=== PATIENT | female | born 1965 | race Caucasian/White ===

== ENCOUNTER → 2018-05-15 20:26 | Outpatient (CLI) | payer BC, SELFPAY | PROVIDERS: Family Provider Specialist; PCP Specialist; Visit Provider Physician Assistant | DX: L02.91 Cutaneous abscess, unspecified (principal) | CPT/HCPCS: 87070; 87075; 87077; 87147; 87186; 87205 ==

== ENCOUNTER → 2018-11-29 07:54 | Outpatient (CLI) | payer BC, SELFPAY ==
[2018-11-29 09:06] LABS: Add Manual Diff / Slide Review NO; Basophils Absolute Auto 0 /uL (0-100); Basophils Percent Auto 0.6 % (0-2); Eosinophils Absolute Auto 100 /uL (0-450); Hematocrit 41.7 % (36-46); Hemoglobin 14.2 g/dL (12.0-16.0); Lymphocytes Absolute Auto 1900 /uL (1100-4500); Mean Corpuscular Hemoglobin 32.4 PG (26-34); Mean Corpuscular Volume 95.2 fL (80-100); Monocytes Absolute Auto 500 /uL (0-900); Monocytes Percent Auto 8.9 % (3-14); Neutrophils Absolute Auto 3200 /uL (1500-7000); Neutrophils Percent Auto 55.5 % (50-75); Platelet Count 271 X10^3/uL (150-400); Red Blood Cell Count 4.38 X10^6/uL (4.0-5.2); Red Cell Distribution Width 13.6 % (11.6-14.8); White Blood Cell Count 5.8 X10^3/uL (4.5-11.0)
[2018-11-29 09:41] LABS: Carbon Dioxide 31 mmol/L (22-32); Chloride 103 mmol/L (98-107); HEMOLYSIS < 15 (0-50); Potassium 4.5 mmol/L (3.4-5.1); Sodium 140 mmol/L (137-145)
== END ==
PROVIDERS: Family Provider Specialist; PCP Specialist; Visit Provider Orthopaedic Surgery
DX: M17.10 Unilateral primary osteoarthritis, unspecified knee (principal); Z01.818 Encounter for other preprocedural examination; Z01.812 Encounter for preprocedural laboratory examination
CPT/HCPCS: 36415; 80051; 85025; 93005

== ENCOUNTER → 2019-02-01 13:54 | Outpatient (CLI) | payer BC, SELFPAY ==
[2019-02-01 14:43] LABS: Add Manual Diff / Slide Review NO; Basophils Absolute Auto 200 /uL (0-100); Basophils Percent Auto 1.9 % (0-2); Eosinophils Absolute Auto 200 /uL (0-450); Eosinophils Percent Auto 2.3 % (2-4); Hematocrit 41.5 % (36-46); Hemoglobin 14.3 g/dL (12.0-16.0); Lymphocytes Absolute Auto 2800 /uL (1100-4500); Lymphocytes Percent Auto 32.2 % (25-40); Mean Corpuscular HGB Conc 34.5 % (30-36); Mean Corpuscular Volume 92.9 fL (80-100); Monocytes Absolute Auto 500 /uL (0-900); Monocytes Percent Auto 6.2 % (3-14); Neutrophils Absolute Auto 5000 /uL (1500-7000); Neutrophils Percent Auto 57.4 % (50-75); Platelet Count 231 X10^3/uL (150-400); Red Blood Cell Count 4.46 X10^6/uL (4.0-5.2); Red Cell Distribution Width 13.3 % (11.6-14.8); White Blood Cell Count 8.7 X10^3/uL (4.5-11.0)
[2019-02-01 14:48] LABS: Carbon Dioxide 28 mmol/L (22-32); Chloride 103 mmol/L (98-107); HEMOLYSIS 22 (0-50); Potassium 4.2 mmol/L (3.4-5.1); Sodium 140 mmol/L (137-145)
== END ==
PROVIDERS: Family Provider Specialist; PCP Specialist; Visit Provider Orthopaedic Surgery
DX: Z01.812 Encounter for preprocedural laboratory examination (principal)
CPT/HCPCS: 36415; 80051; 85025

== ENCOUNTER 2019-02-09 11:04 | Day surgery (SDC) | payer BC, SELFPAY ==
[2019-01-27 07:31] VITALS: BMI 42.0
[2019-02-09] VITALS (17 sets, daily range): BP systolic 88–145; BP diastolic 49–94; PULSE 52–72; RESP 11–16; TEMP 35.9–36.7; O2SAT 93–99; BMI 42.0
--- NOTE | 2019-02-09 11:15 | DI.RAD.S_ITS ---
PROCEDURE: XR KNEE LT 1TO2V INDICATIONS: post op TKA TECHNIQUE: 2 view(s) of the knee acquired. COMPARISON: [facility], , KNEE 3V LEFT, 11/23/2016, 18:59. [facility], , KNEE 3V RIGHT, 02/27/2016, 9:26. FINDINGS: Bones: Patient is status post knee joint arthroplasty. Hardware components are in expected positions. Visualized bony structures are intact. Soft tissues: Overlying postoperative changes are noted. IMPRESSION: Normal alignment after left total knee arthroplasty. Dictated by: Oj Purdy M.D. on 02/09/2019 at 15:28 Approved by: Oj Purdy M.D. on 02/09/2019 at 15:28
--- NOTE | 2019-02-09 11:15 | PM.PREOP ---
Pre-operative Note Interval Note History & Physical reviewed/Exam performed by Physician: Yes Changes to H&P: No
--- NOTE | 2019-02-09 11:16 | PM.OP.1 ---
Operative Date/Time/Diagnoses Date of procedure: 02/09/19 Time of procedure: 14:16 Pre-op diagnosis: Left knee osteoarthritis Post-op diagnosis: same Procedure & Clinicians Procedure: Left total knee arthroplasty Same procedure as scheduled: Yes Indications: The patient presents today for total knee arthroplasty after failure of conservative treatment. The nature of the procedure including the risks and benefits, alternatives, postoperative course and expected outcome were discussed and all questions answered. Consent was obtained. Operative site confirmed and marked. Surgeon: Ant Robert Cnc Milling Machinist: Rj James Anesthesia Type: General, Spinal, Peripheral nerve block and Local Operative Notes Findings: Severe osteoarthritis. Closure Type: primary Specimen(s): none sent Prosthetic devices, grafts, tissues, transplants, or devices: [employer] [facility] BCS: 4 femoral component, 3 tibial component, 9 mm BCS polyethylene tray and 29 x 7.5 mm round patella Applied: implant(s) Estimated Blood Loss (mL): 20 Blood products transfused: none Tourniquet time (min): 64 Procedure in detail: The patient was taken to the operative suite and placed under spinal and general anesthesia. The patient was also given an adductor nerve block. The patient was given prophylactic antibiotics prior to surgery. The patient was also given tranexamic acid, 1 g, just prior to surgery for postoperative hemostasis. The lateral knee was prepped and the joint injected with 20 mL of 1% Lidocaine with epinephrine. The knee was then prepped and draped in usual sterile fashion. The leg was exsanguinated with an Esmarch dressing and the tourniquet raised to 300 torr. A 15 cm anterior incision was made. Next a medial trivector arthrotomy was made. The extensor mechanism was marked to ensure accurate repair. Initial exposing dissection was carried out medially and laterally. The knee was then extended and the patellar thickness was measured and a cut made removing approximately 7-8 mm of bone. The patella was then sized and drilled. Some excess lateral bone was excised and the patellofemoral ligament released. The knee was then flexed and the intramedullary femoral guide rm placed. The distal femoral cut was made in 6 ? of valgus at the + 0 position. The femoral size was measured and the appropriate cutting block was then placed and the anterior, posterior and chamfer cuts made. The extra medullary tibial alignment rm was then placed along the anatomic axis of the tibia approximating the normal slope. The guide was set to remove approximately 9 mm from the less affected lateral side. The proximal tibial cut was then made with an oscillating saw. All meniscus and bony debris was then removed. Flexion extension gaps were checked. The knee was still tight in flexion extension. Another 2 mm of tibia was cut. No specific balancing was required other than routine removal of osteophytes. The soft tissues were then injected with a combination of 20 mL of half percent Marcaine with epinephrine and 20 mL of Exparel. The trial components were then placed. The knee went into full extension and flexion beyond 120?. There was excellent medial- lateral balance throughout motion. Patellar tracking was excellent. The trial components were removed and the knee was cleansed with Pulsavac irrigation and dried. The final components were cemented in with high viscosity vacuum mixed bone cement with antibiotics. The knee was held in extension and the patellar clamp until the cement had adequately cured. The knee was irrigated and inspected for any further debris. The knee was then irrigated with dilute Betadine solution. The extensor mechanism was closed with 5 interrupted #1 Vicryl sutures in 90 degrees of flexion. The joint was then injected with a combination of 1 g of tranexamic acid and 20 mL of quarter percent Marcaine with epinephrine. The subcutaneous tissue was closed with 2-0 Vicryl. The skin was closed with shaun and surgical adhesive. An Aquacell dressing and Artur wrap were then applied. The patient tolerated the procedure well and was returned to recovery room in good condition. Complications: none Condition: stable Disposition: PACU Plan for aftercare: [facility] protocol for total knee arthroplasty.
[2019-02-09] MEDS: LACTATED RINGERS 1,000 ML 42 ML IV ×2 (11:28→15:18)
[2019-02-09] MEDS: PREGABALIN 75 MG CAPSULE PO (11:50)
[2019-02-09] MEDS: ACETAMINOPHEN 325 MG TABLET 975 MG PO ×3 (11:50→21:35)
[2019-02-09] MEDS: CELECOXIB 200 MG CAPSULE PO (11:50)
[2019-02-09] MEDS: CEFAZOLIN 2 GM/100 ML FROZ.PIGGY IV ×2 (12:50→20:44)
--- NOTE | 2019-02-09 13:18 | SUR.OPER ---
Supine on padded OR bed. Pillow under head, arms secured on padded armboards <90 degree abduction. Safety belt across torso. Non-operative leg secured with tape over blanket over lower leg. Operative leg secured in DeMayo/Benitez positioner. Foam padded brace at thigh of operative leg.
[2019-02-09] MEDS: BUPIVACAINE 0.25% W/ EPI (PF) 20 ML, TRANEXAMIC ACID 1,000 MG, SODIUM CHLORIDE 0.9% 10 ML INJ (13:25)
[2019-02-09] MEDS: BUPIVACAINE 0.25% W/ EPI (PF) 40 ML, BUPIVACAINE LIPOSOME 266 MG, SODIUM CHLORIDE 0.9% ... INJ (13:26)
[2019-02-09] MEDS: LIDOCAINE 1% W/EPI INJ 20 ML INJ (13:27)
[2019-02-09] MEDS: HYDROMORPHONE 2 MG INJ 0.5 MG IV ×2 (15:00→15:06)
--- NOTE | 2019-02-09 15:25 | SUR.PHASEI ---
awake, drowsy, resp unlabored, pain controlled. c/o nausea, declines Rx; quease-ease given and sips of orange juice per pt request. She stated that OJ usually resolves her nausea. c/o numbness in the right leg. Legs equally strong when pressing on feet.
[2019-02-09] MEDS: ONDANSETRON 4 MG/2 ML INJ IV (15:38)
--- NOTE | 2019-02-09 16:01 | SUR.PHASEI ---
1550 Report called to floor, transported by pranay Le RN. Pt turned self to right side, states that her nausea is much better. LLE stable, improving strength/motion.
[2019-02-09] MEDS: GABAPENTIN 300 MG CAPSULE PO ×2 (17:30→20:44)
[2019-02-09] MEDS: LACTATED RINGERS 1,000 ML 125 ML IV (17:31)
[2019-02-09] MEDS: OXYCODONE IR 5 MG TABLET PO (17:31)
--- NOTE | 2019-02-09 19:29 | PC.NURSE ---
Admission Note: Pt received from PACU at ~1610. Pt reported pain 3/10 at that time, and was tolerating pain level. Pain briefly up to 4/10, pt given scheduled tyelnol, gabapentin and 5 mg po oxycodone with pain down to 2/10. Circulation and movement intact in LLE. Pt initially reported numbness in BLE, improving with time, reports no numbness at 1930, able to assist pt OOB to attempt to urinate at BS. Pt with brief and transient hypotension to 88/59, resolved when pt sat up to get OOB. Pt did not complain of dizziness or lightheadedness, HR remained in 60s. SBP up to 145 with sitting up in bed. Pt is now up on BSC attempting to urinate. Pt had been bladder scanned for volume of 432 ml. Call light within reach, L leg supported with foot-stool. PRADIP wrap loosened when pt sat up because it was cutting in to pt's thigh and was painful. Will continue to monitor, notify MD with changes.
[2019-02-09] MEDS: ASPIRIN EC 81 MG TABLET PO (20:43)
--- NOTE | 2019-02-09 23:36 | PC.NURSE ---
DANCER OR CHOREOGRAPHER note regarding the vitals put in at 1914: got a call from off going shift asking me to put in these vitals. They were on the monitor. Thanks!
[2019-02-10 00:20] VITALS: BP 111/67; PULSE 54; RESP 16; TEMP 38; O2SAT 100
[2019-02-10] MEDS: OXYCODONE IR 5 MG TABLET PO ×3 (00:26→09:58)
[2019-02-10 01:04] VITALS: BP 146/80; PULSE 92; RESP 18; TEMP 36.9; O2SAT 97
[2019-02-10] MEDS: LACTATED RINGERS 1,000 ML 125 ML IV (02:27)
[2019-02-10] MEDS: CEFAZOLIN 2 GM/100 ML FROZ.PIGGY IV (05:12)
[2019-02-10 05:21] VITALS: BP 121/75; PULSE 61; RESP 16; TEMP 36.5; O2SAT 98
[2019-02-10 07:00] VITALS: PULSE 60; RESP 16; O2SAT 97
[2019-02-10 07:01] LABS: Hematocrit 41.9 % (36-46); Hemoglobin 14.1 g/dL (12.0-16.0)
[2019-02-10 07:20] VITALS: BP 121/54; PULSE 51; RESP 16; TEMP 36.7; O2SAT 98
--- NOTE | 2019-02-10 09:17 | CM.DANOTE ---
Addendum entered by Blanka Erickson LPN 02/10/19 15:50: PT did work with pt today and deemed her stable for home setting. Went early this afternoon to check in with pt. She has already left for home as per her plan Original Note: Discharge Planning/Care Management DCP: assessment: Case received, EMR reviewed. Pt is a 53 year old female who admitted yesterday for a planned L TKA. Surgeon: Dr. Robert Payer: [facility] out of [facility] PCP: Adrian Osborne Pre-op plan: home with family help: noted [facility] ortho protocol: noted Pt arrived to room 227 from PACU 1610 PT is ordered and will see pt for the first time today. P: Discuss case in Team Rounds and then follow up with pt for introduction of self and role and assistance with any d/c issues/options. CM Discharge Assessment Start: 02/10/19 09:13 Freq: Status: Active Protocol: Document 02/10/19 09:16 ITV (Rec: 02/10/19 09:17 ITV [id number]) Discharge Planning Assessment Advance Directives? No History Provided By Medical Record Prior Living Arrangements House Household Members family Whiteboard Updated in Patient Room with Yes name and ext. # of Pit Steward Review Status In Process Pre-Anesthesia Assessment Start: 01/27/19 07:31 Freq: Status: Complete Protocol: Document 01/27/19 07:31 CAB (Rec: 01/27/19 08:46 CAB [id number]) Pre-Anesthesia Assessment PAC Comment Pre-op EKG was reviewed with Dr. Stern. Pt asymptomatic, no further work-up Patient Information Reviewed Via Phone Assessment Assessment Completed With Patient Diagnostic Results BMP/CMP CBC EKG Comment Labs/EKG @ 11/29/18 Primary Care Provider Adrian Osborne Seen Specialist in Last 12 Months Yes Specialist Seen Orthopedist Primary Language Kinyarwanda Mechanical Project Manager Required No Height 157.48 cm Weight 104.326 kg Body Mass Index (BMI) 42.0 Hearing Ability Normal Visual Assist Magnifying Glass Dentition Type Teeth, Natural Present Barriers to Learning None Other Aids No Hx Anesthesia Reactions No Hx Family Anesthesia Reaction No Hx Malignant Hyperthermia No Hx Blood Transfusions No Anesthesia Review Requested No alcohol intake current alcohol intake frequency holidays/special occasions only Smoking Status Never smoker Substance Use Type does not use Pain Present Pain Reported Musculoskeletal Symptoms Abnormal Gait Back Pain Difficulty Walking Joint Pain Muscle Cramps Muscle Spasms Numbness History of Falling (Recent or History of No ) Patient is completely paralyzed or No completely immobile Prosthesis or Orthotic Device Cane Mental Status Oriented to own ability Is patient on oxygen? No Does patient have OLSEN/SOB No Hx Sleep Apnea No Currently Taking a Beta John No Can You Climb a Flight of Stairs Without Yes SOB Hx Chest Pain No Hx SOB No Hx Syncope or Dizziness No Anti-Coagulant Therapy No Has a Surgical Lead No Cardiac Testing No Hx Pacemaker/ICD No Pacemaker Rep Required? No Cardiac Clearance Received Not Applicable Diet Type At Home Gluten Free dysphagia No Urinary Catheter Present No Hx Urinary Self Catheterization No Diabetes No Patient No Lactating No Hx Drug Resistant Organism No Presence of External or Internal Medical No Devices Have you traveled outside the [facility] in the last 30 days? Marital Status Single Lives With family Prior Living Arrangements House Support System Sibling(s) Patient Discharge Plan Description Return Home Comment Pt advised possible overnight length of stay per surgeon Feels Safe in Current Environment Yes Been Physically Hurt or Threatened By a No Person in Current Environment Do you have thoughts of harming yourself None or others? Are you currently considering suicide? No Do you have a plan to hurt yourself or No Plan others? Do You Have Any Spiritual Beliefs That No May Affect Your HC Choices? Do You Have Any Cultural Practices That No May Affect Your HC Choices? Who Can We Speak to About Patient's Care Family, friends Identifying Code for Release of Patient Declines to issue Information Health Care Proxy/Next of Kin Mago (sister) Oj (brother) Health Care Proxy Phone Number Mago: [phone] Oj: [phone] Emergency Contact Name Mago (sister) Oj (brother) Emergency Contact Phone Number [place]: [phone] Oj: [phone] Advance Directives? No: Declines further information Power of Metal Milling Machine Operator No PAC Instructions Do not shave/clip surgical site Durable medical equipment Medications to take/avoid Nasal antibiotic No ETOH/petroleum product on skin DOS NPO Post-op transportation Pre-surgical wash Sensory aids Sturdy shoes/comfortable clothes Do not bring valuables and remove jewelry
[2019-02-10] MEDS: ASPIRIN EC 81 MG TABLET PO (09:21)
[2019-02-10] MEDS: ACETAMINOPHEN 325 MG TABLET 975 MG PO (09:21)
[2019-02-10] MEDS: DULOXETINE 30 MG CAPSULE 90 MG PO (09:21)
[2019-02-10] MEDS: GABAPENTIN 300 MG CAPSULE PO (09:21)
[2019-02-10] MEDS: MELOXICAM 7.5 MG TABLET 15 MG PO (09:24)
--- NOTE | 2019-02-10 10:00 | PT.IIE ---
Current Diagnoses Bilateral primary osteoarthritis of knee (02/09/19) Surgery Performed Operation Date: 02/09/19 13:15 Actual Procedures p Total Knee Arthroplasty *OPB*(Left) - Ant Robert MD Surgical History (Last Updated 01/27/19 @ 08:03 by Priyanka Li RN) H/O prior ablation treatment (Acute) Hx of arthroscopy of left knee (Acute 12/08/16) Hx of tonsillectomy (Acute) Status post epidural steroid injection (Acute) Medical History (Last Updated 01/27/19 @ 07:34 by Priyanka Li RN) Numbness (Acute) Physical Therapy Inpatient Evaluation/Re-Eval M1 PT/OT-IP Prior Functional Status Start: 02/10/19 12:56 Freq: NEEDED Status: Discharge Protocol: Document 02/10/19 10:00 AB (Rec: 02/10/19 13:05 AB [id number]) Medical Review Prior Functional Status Medical History Reviewed Yes Communication able to make needs known Mobility and Gait pt stated that she is modified independent with all mobilities and ambulation usually without AD indoors but will use SPC on initial standing/ambulation when she has sat or laid down for too long; uses a SPC for outdoor mobility Social History Household Members family Living Arrangements House Number of Floors (Floors) Two Floors Number of Stairs To Enter/Railing? pt will stay on the main level of the house; has a ramp to enter Home Environment High Toilet Walk in Shower Built-In Shower Seat Home Equipment Front Wheel Walker Straight Cane Hand Held Shower Grab Bars In Shower Additional Social History Comment pt has a safety frame for the toilet M2 PT-IP Current Condition Start: 02/10/19 12:56 Freq: NEEDED Status: Discharge Protocol: Document 02/10/19 10:00 AB (Rec: 02/10/19 13:05 AB [id number]) Physical Therapy Current Condition Current Condition Evaluation Date 02/10/19 Treatment Diagnosis s/p L TKA; difficulty in walking Onset Date 02/09/19 Weight Bearing Status Weight Bearing Status Weight Bear as Tolerated M3 PT-IP Subjective Start: 02/10/19 12:56 Freq: NEEDED Status: Discharge Protocol: Document 02/10/19 10:00 AB (Rec: 02/10/19 13:05 AB [id number]) Subjective Physical Therapy Visit Type Type Initial Evaluation Visit Start Time 10:00 Visit Stop Time 10:37 Total Visit Minutes 37 Number of CIVIL LABORATORY TECHNICIAN Visits 0 Physical Therapy Visit Comments Patient Comments pt agreeable to do PT Therapy Pain Assessment Pain When Pain Assessed At Rest Pain Present Pain Present Pain Reported Location Left Knee Intensity 4 Scale Used Numeric (1 - 10) Pain Management Techniques Apply Cold Re-positioning Timing of Activity with Medications M4 PT-IP Mobility and Gait Start: 02/10/19 12:56 Freq: NEEDED Status: Discharge Protocol: Document 02/10/19 10:00 AB (Rec: 02/10/19 13:05 AB [id number]) PT-Bed Mobility Assessment Supine to Sit Supine to Sit Standby Assistance Sit to Supine Sit to Supine Standby Assistance Scooting Scooting to Edge of Bed Standby Assistance PT-Transfer Assessment Sit to and From Stand Sit to and from Stand Standby Assistance Use of Upper Extremities Equipment Transfer Assistive Device Gait Belt Front Wheeled Walker Orthotic/Prosthetic Devices or Brace: No Transfers Transfer Destination Bed Chair Transfer Technique pt ambulated using FWW Transfer Ability Level of Assist Standby Assistance Use of Upper Extremities Gait Assessment Gait Gait Assistance Required: Standby Assistance Distance (Feet) 175 Able to Maintain Weight Bearing Status Yes During Gait Assistive Devices Assistive Device Gait Belt Front Wheeled Walker Orthotic/Prosthetic Devices or Brace: No Gait Deviations General Gait Pattern Antalgic Decreased Stride Length Decreased Feet Clearance Factors Limiting Gait Function Factors Limiting Gait Function Decreased Activity Tolerance Decreased Strength Limited Range of Motion Pain Poor Balance PT-Balance Assessment Sitting Balance and Reactions Static Sitting Balance Ability Good Dynamic Sitting Balance Ability Good Standing Balance and Reactions Static Standing Balance Ability Fair Dynamic Standing Balance Ability Fair Device Used FWW M5 PT-IP Objective Assessments Start: 02/10/19 12:56 Freq: NEEDED Status: Discharge Protocol: Document 02/10/19 10:00 AB (Rec: 02/10/19 13:05 AB [id number]) Orientation Orientation/Cognition Level of Alertness Alert Orientation Name Age Birthday Month Date Year Day of Week Place Situation Language Function Ability No Deficits Noted Safety Awareness Understands Safety Issues Memory Description No Deficits Noted Gross Range of Motion Lower Extremity ROM Assessment Left Impaired Impairments L knee flexion: ~ 50 deg L knee extension: lacking ~ 20 deg to 0 Strength Lower Extremity Strength Assessment Left Impaired Hip 3+/5 Knee 3+/5 Coordination Assessment Gross Coordination Gross Coordination WNL Sensation Assessment Sensation Gross Sensation WNL M6 PT-IP Treatment Start: 02/10/19 12:56 Freq: NEEDED Status: Discharge Protocol: Document 02/10/19 10:00 AB (Rec: 02/10/19 13:05 AB [id number]) Physical Therapy Treatment Exercises Exercises Heel Slides Education Education Provided Precautions Weight Bearing Status Post-Op Packet Safety M7 PT-IP Assessment and Plan Start: 02/10/19 12:56 Freq: NEEDED Status: Discharge Protocol: Document 02/10/19 10:00 AB (Rec: 02/10/19 13:05 [id number]) PT Summary Assessment and Plan Potential Rehabilitation Potential Good Status of Condition at Evaluation Stable Summary Impairments Pain ROM Strength Balance Cognition Bed Mobility Transfers Gait Activity Tolerance Assessment Summary pt requiring SBA with mobility . pt plans to go home today and she has her sister or brother that will assist her at home. pt has outpt PT already set up. Goals Bed Mobility Goal Independent Transfer Goal Independent Front Wheeled Walker Gait Goal Independent Front Wheel Walker Gait Distance 250 Days to Meet Goals 3 Frequency of Treatment Frequency Of Treatment Twice a Day Treatment Plan Physical Therapy Treatment Plan Bed Mobility Training Transfer Training Gait Training Therapeutic Exercise Balance Retraining Post Op Education Discharge Planning Hot or Cold Pack Neuromuscular Re-ed Coordination Retraining Manual Therapy Recommendations To Nursing Amount of Assist Needed 1 Person Assist Discharge Recommendations PT Discharge Recommendations Home with Assistance Outpatient PT
--- NOTE | 2019-02-10 10:37 | P.DS_ITS ---
History of Present Illness Date Patient Seen: 02/10/19 Time Patient Seen: 10:33 Chief complaint: *[id number] Narrative: Pain is mild. Denies fever chills. No nausea vomiting. Patient has assistance at home. She is mobilized with physical therapy. She is ready for discharge home today. Discharge Providers Discharge Date: 02/10/19 Primary care physician: Adrian Osborne MD Consults: 02/09/19 16:57 Consult to Discharge Planning Routine Comment: Consult to Physical Therapy Evaluate & Treat Comment: Physician Instructions: postop TKA protocol Consult to Respiratory Therapy Evaluate & Treat Comment: Physician Instructions: Evaluate and treat Discharge provider: Rj James PA-C Summary Discharge Diagnosis: 1. Status post left total knee arthroplasty due to severe left knee osteoarthritis 2. Obesity BMI 42 Hospital Course: he patient presents today for total knee arthroplasty after failure of conservative treatment. The nature of the procedure including the risks and benefits, alternatives, postoperative course and expected outcome were discussed and all questions answered. Consent was obtained. Operative site confirmed and marked. Surgeon: Ant Robert Regional Truck Driver: Rj James Anesthesia Type: General, Spinal, Peripheral nerve block and Local Operative Notes Findings: Severe osteoarthritis. Closure Type: primary Specimen(s): none sent Prosthetic devices, grafts, tissues, transplants, or devices: [employer] [facility] BCS: 4 femoral component, 3 tibial component, 9 mm BCS polyethylene tray and 29 x 7.5 mm round patella Applied: implant(s) Estimated Blood Loss (mL): 20 Blood products transfused: none Tourniquet time (min): 64 Patient admitted to the hospital for left total knee arthroplasty. Patient consented to the same. Patient taken to the operating room underwent left total knee arthroplasty. Patient back in her room recovering well as in stable condition. Status at Discharge Cognitive/behavioral status at discharge: at baseline, oriented Functional status at discharge: uses cane/walker Overall status at discharge: patient is progressing back to baseline Time Spent with Patient Less than 30 minutes Exam Vital Signs (past 8 hours): - 02/10/19 05:21 02/10/19 07:00 02/10/19 07:20 Temperature 97.7 F 98.0 F Pulse Rate 61 60 51 L Respiratory Rate 16 16 16 Blood Pressure 121/75 121/54 L Pulse Oximetry 98 97 98 Fraction of Inspired Oxygen 21 Oxygen Delivery Method Room Air Oxygen Flow Rate 0 Narrative Exam Narrative: 53-year-old female sitting in bedside chair doing heel slides with physical therapy. Patient in no apparent distress. Dressing is clean, dry and intact. Neurovascular status is intact distal left lower extremity. Left leg is warm and dry. Objective Labs Result Diagrams: 02/10/19 06:15 Labs: Laboratory Results - last 24 hr 02/10/19 06:15 Hgb 14.1 Hct 41.9 Discharge Plan Discharge Plan Patient Disposition: Home Discharge Med Rec/Prescriptions Prescriptions: Continued gabapentin 300 mg capsule 300 mg PO TID RF: 0 tizanidine 2 mg capsule 1 - 2 cap PO BID-TID RF: 0 meloxicam 15 mg tablet 15 mg PO DAILY RF: 0 duloxetine 60 mg Capsule,Delayed Release(Dr/Ec) 90 mg PO DAILY RF: 0 Follow up/Referrals: Ant Robert MD [Physician] - (1 wk) Adrian Osborne MD [Primary Care Provider] - Discharge Orders: Discharge (Order); Ordered 02/10/19 Ordered By: Rj James Provider Discharge Instructions Diet: Diet as Tolerated Activity: Per [facility] Cold/Heat Therapy: per [facility] Other treatments: Medications per [facility] Skin/Wound/Dressing Care Report to your healthcare provider any signs of infection, such as:: chills, fever, increased pain, unusual drainage and unusual redness Dressing: keep clean and dry Discharge Data Primary Care Provider: Adrian Osborne Attending Provider: Ant Robert Quality VTE Deep Vein Thrombosis/Pulmonary Embolism Present on Admission: No
--- NOTE | 2019-02-10 11:16 | CM.MNRNOTE ---
PTs dressing to L.knee is cdi, She is moving well with 1pa and walker. Pt will be discharging today around 1230.
== END 2019-02-10 12:45 | disposition home or self-care (01) ==
LOC: OR 11:08 → AC 11:09
PROVIDERS: Family Provider Specialist; PCP Specialist; Visit Provider Orthopaedic Surgery
PROC: 0SRD0JZ Replacement of Left Knee Joint with Synthetic Substitute, Open Approach (ICD-10-PCS; CPT 27447; principal; 2019-02-09 13:15)
DX: M17.12 Unilateral primary osteoarthritis, left knee (principal)
CPT/HCPCS: 27447; 36415; 73560; 85014; 85018; 94760; 97161; 97530; C1776; C9290; J0690; J1100; J1170; J2250; J2405; J2704; J3010

== ENCOUNTER → 2019-09-27 09:19 | Outpatient (CLI) | payer BC, SELFPAY ==
[2019-02-09 11:20] VITALS: BMI 42.0
[2019-09-27 11:51] LABS: Influenza A - CEPHEID Flu A NEGATIVE (NEGATIVE); Influenza B - CEPHEID Flu B NEGATIVE (NEGATIVE)
[2019-09-29 04:11] LABS: COVID19 Sendout Detected (Not Detected)
== END ==
PROVIDERS: Family Provider Specialist; PCP Specialist; Visit Provider Family Medicine
DX: R05 Cough (principal); R50.9 Fever, unspecified
CPT/HCPCS: 87502; 87635

== ENCOUNTER 2022-09-21 22:30 | Emergency (ER) | payer OTHER, SELFPAY ==
[2019-02-09 11:20] VITALS: BMI 42.0
[2022-09-21 22:43] VITALS: BP 129/60; PULSE 64; RESP 16; TEMP 36.6; O2SAT 98
--- NOTE | 2022-09-21 22:46 | ED.WOUNDLAC ---
HPI - Wound/Laceration General Chief Complaint: Wound/Laceration Stated Complaint: Cut right thumb Time Seen by Provider: 09/21/22 22:39 Source: patient Mode of arrival: Ambulatory Limitations: no limitations History of Present Illness HPI narrative: 57-year-old female. Not on anticoagulation who is here for evaluation of a cut to her right thumb. She states she cut it on a soup can taking the trash out. She covered with a bandage and came into the emergency department. She is up-to-date on her tetanus. Related Data Home Medications Medication Instructions Recorded Confirmed gabapentin 300 mg capsule 300 mg PO TID 07/18/18 09/27/19 tizanidine 2 mg capsule 1 - 2 cap PO BID-TID 07/18/18 09/27/19 meloxicam 15 mg tablet 15 mg PO DAILY 10/01/18 09/27/19 duloxetine 60 mg capsule,delayed 90 mg PO DAILY Neve pain 01/27/19 09/27/19 release Allergies Allergy/AdvReac Type Severity Reaction Status Date / Time No Known Allergies Allergy Uncoded 09/27/19 08:58 Review of Systems Musculoskeletal Musculoskeletal: Reports system reviewed and no additional complaints, except as documented Integumentary/Breasts Skin/Breast: Reports system reviewed and no additional complaints, except as documented Neurologic Neurologic: Reports system reviewed and no additional complaints, except as documented Patient History Medical History Numbness Surgical History (Updated 01/27/19 @ 08:03 by Priyanka Li RN) H/O prior ablation treatment Hx of arthroscopy of left knee (12/08/16) Hx of tonsillectomy Status post epidural steroid injection Social History household members: family Smoking Status: Never smoker alcohol intake: current Smoking Status: Never smoker alcohol intake frequency: holidays/special occasions only Substance Use Type: does not use Exam Skin Other: 2 cm cut to the radial aspect/volar aspect of the right thumb. No active bleeding. It is distal to the IP joint. Neuro Sensory Exam: no sensory deficits noted Extrem Other: Cut to right thumb. Procedures Laceration Repair Laceration 1: Site: hand Size (cm): 2 Description: linear Depth: simple, single layer Skin layer closed with: dermabond MDM - Wound/Laceration MDM Narrative Medical decision making narrative: No foreign bodies. Skin was closed with Dermabond. Patient was given care instructions and return precautions. No indication for antibiotics. She expressed understanding and agreement. Discharge Plan Departure Patient Disposition: Home Clinical Impression: Laceration Instructions: DI for Laceration Repair-Skin Glue Activity Restrictions/Additional Instructions: You can wash her hands like normal. The skin glue should stay on for the next week. Return to the emergency department for any new symptoms. Prescriptions: No Action gabapentin 300 mg capsule 300 mg PO TID tizanidine 2 mg capsule 1 - 2 cap PO BID-TID meloxicam 15 mg tablet 15 mg PO DAILY duloxetine 60 mg Capsule,Delayed Release(Dr/Ec) 90 mg PO DAILY Referrals: Adrian Osborne MD [Primary Care Provider] - Stand Alone Forms: Patient Portal/API
== END 2022-09-21 22:55 | disposition home or self-care (01) ==
PROVIDERS: Emergency Provider Emergency Medicine; Family Provider Specialist; PCP Specialist
DX: S61.011A Laceration without foreign body of right thumb without damage to nail, initial encounter (principal); W26.8XXA Contact with other sharp object(s), not elsewhere classified, initial encounter
CPT/HCPCS: 99282

== ENCOUNTER → 2023-04-24 15:42 | Outpatient (CLI) | payer OTHER, SELFPAY ==
[2019-02-09 11:20] VITALS: BMI 42.0
[2023-04-24 16:28] LABS: Influenza A - CEPHEID Flu A NEGATIVE (NEGATIVE); Influenza B - CEPHEID Flu B NEGATIVE (NEGATIVE); Respiratory Syncytial Virus Negative (Negative)
[2023-04-24 17:13] LABS: COVID-19 CEPHEID 4-PLEX PCR POSITIVE (Negative)
== END ==
PROVIDERS: Family Provider Specialist; PCP Specialist; Visit Provider Physician Assistant
DX: R05.9 Cough, unspecified (principal); R68.83 Chills (without fever); R52 Pain, unspecified
CPT/HCPCS: 0241U

== ENCOUNTER → 2023-11-08 14:17 | Outpatient (CLI) | payer OTHER, SELFPAY ==
[2019-02-09 11:20] VITALS: BMI 42.0
[2023-11-08 15:11] LABS: Influenza A - CEPHEID Flu A NEGATIVE (NEGATIVE); Influenza B - CEPHEID Flu B NEGATIVE (NEGATIVE); Respiratory Syncytial Virus Negative (Negative)
[2023-11-08 15:15] LABS: COVID-19 CEPHEID 4-PLEX PCR Negative (Negative)
== END ==
PROVIDERS: Family Provider Specialist; PCP Specialist; Visit Provider Physician Assistant Medical
DX: J02.9 Acute pharyngitis, unspecified (principal); R05.9 Cough, unspecified
CPT/HCPCS: 0241U; 87070

== ENCOUNTER → 2023-11-08 14:27 | Outpatient (CLI) | payer OTHER, SELFPAY ==
[2019-02-09 11:20] VITALS: BMI 42.0
--- NOTE | 2023-11-08 14:29 | DI.RAD.S_ITS ---
PROCEDURE: XR CHEST 2V INDICATIONS: Cough and SOB TECHNIQUE: 2 views of the chest were acquired. COMPARISON: None. FINDINGS: Surgical changes and devices: None. Lungs and pleura: Lungs are clear. No pleural effusions or pneumothorax. Mediastinum: Mediastinal contours are normal. Heart size is normal. Bones and chest wall: No suspicious bony abnormalities. Soft tissues appear unremarkable. IMPRESSION: No acute cardiopulmonary abnormality is seen. Approved by: Alberto Ortiz M.D. on 11/08/2023 at 15:08
== END ==
LOC: RAD 14:28
PROVIDERS: Family Provider Specialist; PCP Specialist; Referring Provider Physician Assistant Medical; Visit Provider Physician Assistant Medical
DX: R05.9 Cough, unspecified (principal); J02.9 Acute pharyngitis, unspecified
CPT/HCPCS: 0241U; 71046; 87070

== ENCOUNTER 2024-09-21 21:36 | Emergency (ER) | payer OTHER, SELFPAY ==
[2019-02-09 11:20] VITALS: BMI 42.0
--- NOTE | 2024-09-21 22:03 | DI.RAD.S_ITS ---
PROCEDURE: XR FOREARM RT 2V INDICATIONS: possible FB TECHNIQUE: 2 views of the forearm were acquired. COMPARISON: None. FINDINGS: Bones: No fractures or dislocations. No suspicious bony lesions. Soft tissues: No suspicious soft tissue calcifications or masses. No radiopaque soft tissue foreign bodies. IMPRESSION: No acute bony abnormality. No radiopaque soft tissue foreign bodies. Dictated by: Octavio Lux M.D. on 09/21/2024 at 23:56 Approved by: Octavio Lux M.D. on 09/21/2024 at 23:57
--- NOTE | 2024-09-21 22:04 | DI.RAD.S_ITS ---
PROCEDURE: XR SHOULDER LT MIN 2V INDICATIONS: injury TECHNIQUE: 2 views of the shoulder were acquired. COMPARISON: None. FINDINGS: Bones: Anterior, inferior dislocation of the left humeral head. No definite fracture seen. Evaluation limited by patient positioning. Degenerative changes of the left shoulder. Soft tissues: No suspicious soft tissue calcifications. IMPRESSION: Anterior, inferior dislocation of the left humeral head relative to the glenoid. No definite fracture seen. Reassessment can be made on post reduction imaging. Dictated by: Octavio Lux M.D. on 09/21/2024 at 23:57 Approved by: Octavio Lux M.D. on 09/21/2024 at 23:59
[2024-09-21 22:05] VITALS: PULSE 73; RESP 18; TEMP 36.5; O2SAT 99; BMI 50.3
[2024-09-21 23:09] VITALS: BP 148/68
[2024-09-21] MEDS: HYDROMORPHONE 0.5 MG INJ IV (23:17)
[2024-09-21] MEDS: ONDANSETRON 4 MG/2 ML INJ IV (23:17)
--- NOTE | 2024-09-21 23:57 | ED.FALL ---
HPI - Fall General Chief Complaint: Fall Stated Complaint: Fall, arm laceration, no blood thinners Time Seen by Provider: 09/21/24 23:56 Source: patient Mode of arrival: Ambulatory History of Present Illness HPI Narrative: Patient is a 59-year-old female who presents today after mechanical ground level fall. She reports she was walking with a Tea cup in hand when she tripped and fell. T cup broke she actually cut her right forearm but really complaining of pretty severe left shoulder pain. No head injury no loss of consciousness no nausea vomiting no neck pain no rib pain no other injury. Reports tetanus is up to date Related Data Home Medications Medication Instructions Recorded Confirmed meloxicam 15 mg tablet 15 mg PO DAILY 10/01/18 11/08/23 duloxetine 60 mg capsule,delayed 90 mg PO DAILY Neve pain 01/27/19 11/08/23 release Previous Rx's Medication Instructions Recorded albuterol sulfate 90 mcg/actuation 2 puff inhalation Q6H PRN 11/08/23 aerosol inhaler shortness of breath or wheezing #6.7 grams amoxicillin 875 mg-potassium 1 tab PO BID #20 tabs 11/08/23 clavulanate 125 mg tablet Allergies Allergy/AdvReac Type Severity Reaction Status Date / Time No Known Allergies Allergy Uncoded 11/08/23 14:09 Patient History Medical History Numbness Surgical History H/O prior ablation treatment Status post epidural steroid injection Hx of tonsillectomy Hx of arthroscopy of left knee (12/08/16) Social History household members: family Smoking Status: Never smoker alcohol intake: current Smoking Status: Never smoker alcohol intake frequency: holidays/special occasions only Exam Initial Vital Signs Initial Vital Signs: Vital Signs Temperature 97.7 F 09/21/24 22:05 Pulse Rate 73 09/21/24 22:05 Respiratory Rate 18 09/21/24 22:05 Pulse Oximetry 99 09/21/24 22:05 Oxygen Delivery Method Room Air 09/21/24 22:05 GENERAL: Alert 59-year-old female and in no acute distress. HEENT: Head atraumatic,EOMI, pupils reactive, face symmetric, moist mucous membranes CARDIOVASCULAR: Regular rate and rhythm without murmurs, rubs or gallops. RESPIRATORY: Breath sounds equal bilaterally, no wheezes rales or rhonchi. Ribs stable ABDOMEN: Soft, nontender. Normoactive bowel sounds all 4 quadrants. No guarding or rebound. EXTREMITIES: Normal range of motion, no clubbing or edema. Neurovascularly intact pelvis stable Right upper extremity laceration no gross bony deformity distal radial pulse intact Left upper extremity step-off noted at AC joint sensation in deltoid intact distal radial pulse intact able to move finger NEUROLOGICAL: Alert and oriented x4.Normal gait and speech. Cranial nerves II through XII grossly intact. SKIN: Right forearm 2 cm laceration anterior side neurovascularly intact Procedures Laceration Repair Laceration 1: Site: upper extremity Side (If applicable): right Size (cm): 2 Description: linear Depth: simple, single layer Local Anesthetic: lidocaine 1% and with epi Amount of anesthesia used (mL): 6 Pre-repair: wound explored, irrigated extensively and deep structures intact Skin layer closed with: nylon Skin layer suture size: 4-0 Number of sutures: 2 Technique: simple, interrupted Orthopedic Joint Reduction Joint #1: Side: left Joint Reduction Location: shoulder Analgesia: procedural sedation Shoulder Technique Used (if applicable): traction/counter-traction and external rotation Post-reduction neuro exam: intact Post-reduction vascular: intact Post Reduction X-Ray Obtained: Yes Post Reduction X-Ray Results: reduced Orthopedic Splinting/Casting Injury #1: Side: left Upper Extremity Injury Location: shoulder Upper Extremity Immobilizer: sling/shoulder immobilizer Post splinting neuro exam: intact Post splinting vascular exam: intact Placed by: Nursing Procedural Sedation Indication: fracture/dislocation reduction ASA Class: III Mallampati Airway Classification: Class III IV Propofol dose (mg): 150 Intraservice time/total sedation time (min): 20 ED Sedation Level: Moderate (Concious) Patient Tolerated Procedure: Well Complications: hypoxia Interventions: Airway repositioned, Assist by BVM and Oxygen applied Course Orders Ordered: ED Orders 09/21/24 22:03 XR forearm RT 2V Stat 09/21/24 22:04 XR shoulder LT min 2V Stat 09/22/24 XR shoulder LT min 2V Stat Discontinued Medications Hydrocodone Bitart/Acetaminophen (Hydrocodone/Acet 5/325 Prepack) 1 bottle MISC DIRECTED ONE Stop: 09/22/24 01:21 Last Admin: 09/22/24 01:28 Dose: 1 bottle Documented By: CARRINGTON Hydromorphone HCl (Hydromorphone 0.5 Mg Inj) 0.5 mg IV NOW ONE Stop: 09/21/24 23:09 Last Admin: 09/21/24 23:17 Dose: 0.5 mg Documented By: CARRINGTON Ondansetron HCl (Ondansetron 4 Mg/2 Ml Inj) 4 mg IV NOW ONE Stop: 09/21/24 23:09 Last Admin: 09/21/24 23:17 Dose: 4 mg Documented By: CARRINGTON Propofol (Propofol 200 Mg/20 Ml Vial) 125 mg 1 mg/kg (125 mg) IV NOW ONE Stop: 09/21/24 23:00 Propofol (Propofol 200 Mg/20 Ml Vial) 150 mg IV NOW ONE Stop: 09/22/24 01:53 Last Admin: 09/22/24 01:54 Dose: 150 mg Documented By: CARRINGTON Vital Signs Vital signs: Vital Signs - 8 hr 09/21/24 22:05 09/21/24 23:09 09/22/24 00:40 Temperature 97.7 F Pulse Rate 73 77 Respiratory Rate 18 26 H Blood Pressure 148/68 H 142/60 H Pulse Oximetry 99 97 Oxygen Delivery Method Room Air Nasal Cannula Oxygen Flow Rate 2 09/22/24 00:45 09/22/24 00:50 09/22/24 00:55 Temperature Pulse Rate 79 77 71 Respiratory Rate 27 H 32 H 20 Blood Pressure 126/64 124/60 121/60 Pulse Oximetry 82 L 96 95 Oxygen Delivery Method Nasal Cannula Nasal Cannula Room Air Oxygen Flow Rate 4 2 09/22/24 00:57 09/22/24 01:00 Temperature Pulse Rate 78 79 Respiratory Rate 14 22 Blood Pressure 110/55 L Pulse Oximetry 95 Oxygen Delivery Method Room Air Oxygen Flow Rate MDM - Fall Lab Data Labs: Point of Care Testing Test Results Not applicable Imaging Data Extremity x-ray #1: Radiologist's Impression: PROCEDURE: XR SHOULDER LT MIN 2V INDICATIONS: injury TECHNIQUE: 2 views of the shoulder were acquired. COMPARISON: None. FINDINGS: Bones: Anterior, inferior dislocation of the left humeral head. No definite fracture seen. Evaluation limited by patient positioning. Degenerative changes of the left shoulder. Soft tissues: No suspicious soft tissue calcifications. IMPRESSION: Anterior, inferior dislocation of the left humeral head relative to the glenoid. No definite fracture seen. Reassessment can be made on post reduction imaging. Dictated by: Octavio Lux M.D. on 09/21/2024 at 23:57 Extremity x-ray #2: Radiologist's Impression: PROCEDURE: XR FOREARM RT 2V INDICATIONS: possible FB TECHNIQUE: 2 views of the forearm were acquired. COMPARISON: None. FINDINGS: Bones: No fractures or dislocations. No suspicious bony lesions. Soft tissues: No suspicious soft tissue calcifications or masses. No radiopaque soft tissue foreign bodies. IMPRESSION: No acute bony abnormality. No radiopaque soft tissue foreign bodies. Dictated by: Octavio Lux M.D. on 09/21/2024 at 23:56 Extremity x-ray #3: Radiologist's Impression: PROCEDURE: XR SHOULDER LT MIN 2V INDICATIONS: post reduction TECHNIQUE: 2 views of the shoulder were acquired. COMPARISON: [facility], , XR SHOULDER LT MIN 2V, 09/21/2024, 22:35. FINDINGS: Bones: Post reduction alignment of the left shoulder appears anatomic. Mild widening of the acromioclavicular joint. No definite fracture seen. No suspicious osseous lesions. Soft tissues: No suspicious soft tissue calcifications. IMPRESSION: Post reduction alignment of the left glenohumeral joint appears anatomic. Mild widening of the acromioclavicular joint. No definite fracture identified. Dictated by: Octavio Lux M.D. on 09/22/2024 at 1:08 Approved by: Octavio Lux M.D. on 09/22/2024 at 1:09 [facility] Narrative Medical decision making narrative: Patient 59-year-old today left shoulder and right forearm laceration. It is a mechanical trip and fall. Fall cut in the right forearm easily repaired. No evidence of foreign body. sHe required procedure sedation for a left shoulder dislocation which was reduced. Overall feeling much better. No other injury she was not on anti coagulation medication. No need for further workup Discharge Plan Departure Patient Disposition: Home Clinical Impression: Anterior dislocation of left shoulder, Laceration of forearm, right Instructions: Shoulder Dislocation, DI for Laceration Repair Activity Restrictions/Additional Instructions: *You have been diagnosed with left shoulder dislocation right forearm laceration *What to do: At this time I have sutures removed in about 5-7 days. He would clean and dry with soap and water maybe normally apply antibiotic ointment 1-2 times daily Expect left shoulder to be sore. May wear sling increased movement as tolerated *Continue to take medications as directed Tylenol Motrin as needed for pain [place] 1 tablet every 6 hours if needed for severe pain *Follow up with your primary care provider in 2-3 days or call [phone] *Return to ER if you should have increasing pain redness swelling drainage or any new, worsening or concerning symptoms CONTROLLED SUBSTANCE DISCHARGE (Narcotoic/benzodiazepine/Flexeril/Phenergan) 1. You have been prescribed narcotic medications, it does have acetaminophen/Tylenol/paracetamol in it, DO NOT TAKE MORE THAN 4,00mg in 24 hours of Tylenol. TRAMADOL DOES NOT CONTAIN TYLENOL 2. Please understand that we cannot provide further refills of narcotics, benzodiazepines or controlled substances through the ED and her pain management will need to be through your provider. 3. While on these medications you cannot drive or operate heavy machinery. 4. You cannot sign legal documents or perform any duties such as this. 5. As long as you're taking opiate pain medications he should also be taking a stool softener such as Colace, Dulcolax, MiraLAX or prune juice, to help avoid constipation. Prescriptions: No Action meloxicam 15 mg tablet 15 mg PO DAILY albuterol sulfate 90 mcg/actuation HFA aerosol inhaler 2 puff inhalation Q6H PRN (Reason: shortness of breath or wheezing) Qty: 6.7 0RF amoxicillin-pot clavulanate 875-125 mg tablet 1 tab PO BID Qty: 20 0RF duloxetine 60 mg Capsule,Delayed Release(Dr/Ec) 90 mg PO DAILY Referrals: Miscellaneous,Doctor, MD [Primary Care Provider] - Stand Alone Forms: Patient Portal/API/Survey
--- NOTE | 2024-09-22 | DI.RAD.S_ITS ---
PROCEDURE: XR SHOULDER LT MIN 2V INDICATIONS: post reduction TECHNIQUE: 2 views of the shoulder were acquired. COMPARISON: [facility], CR, XR SHOULDER LT MIN 2V, 09/21/2024, 22:35. FINDINGS: Bones: Post reduction alignment of the left shoulder appears anatomic. Mild widening of the acromioclavicular joint. No definite fracture seen. No suspicious osseous lesions. Soft tissues: No suspicious soft tissue calcifications. IMPRESSION: Post reduction alignment of the left glenohumeral joint appears anatomic. Mild widening of the acromioclavicular joint. No definite fracture identified. Dictated by: Octavio Lux M.D. on 09/22/2024 at 1:08 Approved by: Octavio Lux M.D. on 09/22/2024 at 1:09
[2024-09-22 00:40] VITALS: BP 142/60; PULSE 77; RESP 26; O2SAT 97
[2024-09-22 00:45] VITALS: BP 126/64; PULSE 79; RESP 27; O2SAT 82
[2024-09-22 00:50] VITALS: BP 124/60; PULSE 77; RESP 32; O2SAT 96
[2024-09-22 00:55] VITALS: BP 121/60; PULSE 71; RESP 20; O2SAT 95
[2024-09-22 00:57] VITALS: PULSE 78; RESP 14; O2SAT 95
[2024-09-22 01:00] VITALS: BP 110/55; PULSE 79; RESP 22; O2SAT 95
[2024-09-22] MEDS: HYDROCODONE/ACET 5/325 PREPACK 1 BOTTLE MISC (01:28)
[2024-09-22] MEDS: propofoL 200 MG/20 ML VIAL 150 MG IV (01:54)
== END 2024-09-22 01:50 | disposition home or self-care (01) ==
PROVIDERS: Emergency Provider Emergency Medicine; Family Provider Specialist
DX: S43.005A Unspecified dislocation of left shoulder joint, initial encounter (principal); S51.811A Laceration without foreign body of right forearm, initial encounter; W01.110A Fall on same level from slipping, tripping and stumbling with subsequent striking against sharp glass, initial encounter
CPT/HCPCS: 12001; 23650; 36415; 73030; 73090; 96374; 96375; 99152; 99285; J1171; J2405; J2704

== ENCOUNTER 2024-09-26 13:13 | Emergency (ER) | payer OTHER, SELFPAY ==
[2019-02-09 11:20] VITALS: BMI 42.0
[2024-09-26] VITALS (18 sets, daily range): BP systolic 143–181; BP diastolic 64–86; PULSE 53–71; RESP 8–24; TEMP 36.1; O2SAT 95–100; BMI 50.3
--- NOTE | 2024-09-26 13:27 | DI.RAD.S_ITS ---
PROCEDURE: XR SHOULDER LT MIN 2V INDICATIONS: concern for shoulder dislocation TECHNIQUE: 2 views of the shoulder were acquired. COMPARISON: [facility], CR, XR SHOULDER LT MIN 2V, 09/22/2024, 0:42. [facility], CR, XR SHOULDER LT MIN 2V, 09/21/2024, 22:35. FINDINGS/IMPRESSION: Anterior, inferior dislocation of the humerus. No displaced fracture. Dictated by: Andrew Dozier M.D. on 09/26/2024 at 13:59 Approved by: Andrew Dozier M.D. on 09/26/2024 at 13:59
[2024-09-26] MEDS: KETOROLAC 30 MG/ML VIAL 15 MG IV (13:44)
--- NOTE | 2024-09-26 14:15 | ED.UPPEXIN ---
HPI - Extremity Injury (Upper) General Chief Complaint: Extremity Injury, Upper Stated Complaint: Per patient, Dislocated her left shoulder Time Seen by Provider: 09/26/24 13:16 Source: patient, RN notes reviewed and old records reviewed Mode of arrival: Ambulatory Limitations: no limitations History of Present Illness HPI narrative: 59-year-old female no reported medical issues with shoulder dislocation on 09/21/2024 who had reduction here in the department. Patient returns states she was stretching and feels like her shoulder popped out again. Patient states she has been doing well otherwise. Had immediately pain afterwards. No numbness or tingling or weakness she can move her elbow and wrist. This happened just prior to arrival. Patient states has not ever had any prior surgeries or injuries until she dislocated her shoulder in the . States only home medications or meloxicam. Denies any falls or injuries. She has had a prior knee replacement but no other surgeries. Denies any allergies to med, no tobacco, no regular alcohol no recreational drugs. She was not had any alcohol today. Patient does not use a CPAP, isn't been told she snores. Last intake was breakfast at 7:30 a.m. this morning then had some water at 9:30 a.m.. She was accompanied by her sister. Related Data Home Medications Medication Instructions Recorded Confirmed meloxicam 15 mg tablet 15 mg PO DAILY 10/01/18 11/08/23 duloxetine 60 mg capsule,delayed 90 mg PO DAILY Neve pain 01/27/19 11/08/23 release Previous Rx's Medication Instructions Recorded albuterol sulfate 90 mcg/actuation 2 puff inhalation Q6H PRN 11/08/23 aerosol inhaler shortness of breath or wheezing #6.7 grams amoxicillin 875 mg-potassium 1 tab PO BID #20 tabs 11/08/23 clavulanate 125 mg tablet Allergies Allergy/AdvReac Type Severity Reaction Status Date / Time No Known Allergies Allergy Uncoded 11/08/23 14:09 Review of Systems Review of Systems ROS Unobtainable: All systems reviewed & are unremarkable except as noted in HPI and below Patient History Medical History Numbness Surgical History H/O prior ablation treatment Status post epidural steroid injection Hx of tonsillectomy Hx of arthroscopy of left knee (12/08/16) Social History household members: family Smoking Status: Never smoker alcohol intake: current Smoking Status: Never smoker alcohol intake frequency: holidays/special occasions only Exam Narrative Exam Narrative: GENERAL: Alert and oriented x three, female in moderate distress HEENT: Head normocephalic, atraumatic, EOMI, pupils reactive, face symmetric, moist mucous membranes NECK: Supple, full range of motion CARDIOVASCULAR: Regular rate and rhythm without murmurs, rubs or gallops. RESPIRATORY: Breath sounds equal bilaterally, no wheezes rales or rhonchi. ABDOMEN: Soft, nontender. Normoactive bowel sounds all 4 quadrants. No guarding or rebound, rigidity, no mass EXTREMITIES: Decreased movement of the right shoulder has normal range of motion of the wrist and hand. Patient was in a sling. Has 2+ pulses bilaterally. Equal sleep medicine physician bilaterally. Normal sensation to both hands light touch., no clubbing or edema. Neurovascularly intact NEUROLOGICAL: Cranial nerves II through XII grossly intact. Moving all extremities SKIN: Warm, dry, no petechiae, no rashes or lesions. Initial Vital Signs Initial Vital Signs: Vital Signs Temperature 96.9 F L 09/26/24 13:15 Pulse Rate 71 09/26/24 13:15 Respiratory Rate 24 09/26/24 13:15 Blood Pressure 171/77 H 09/26/24 13:15 Pulse Oximetry 96 09/26/24 13:15 Oxygen Delivery Method Room Air 09/26/24 13:15 Procedures Orthopedic Joint Reduction Joint #1: Time Out Performed: Yes Side: right Joint Reduction Location: shoulder Analgesia: procedural sedation Shoulder Technique Used (if applicable): external rotation Post-reduction neuro exam: intact and no change Post-reduction vascular: intact and no change Post Reduction X-Ray Obtained: Yes Post Reduction X-Ray Results: reduced Splint Applied: Yes (Sling) Patient Tolerated Procedure: Well Procedural Sedation Consent signed: Yes Time out performed: Yes Indication: fracture/dislocation reduction ASA Class: II Mallampati Airway Classification: Class II Time of Last PO Intake: 09:30 Preparation: traffic monitor specialist applied, pulse oximeter, capnometry used, supplemental O2 applied, suction/airway equipment at bedside and IV secured IV Propofol dose (mg): 75 ED Sedation Level: Moderate (Concious) Complications: hypoxia Interventions: Airway repositioned and Assist by BVM Additional Comments: Patient was noted on her prior procedural sedation with 150 mg of propofol that required BVM and O2 so was given 75 mg or half of the dose used on her prior reduction.. Patient became almost apneic and was hypoxic. She had airway repositioned did have BVM patient was starting to wake up and moan against the BVM but was still hypoxic. She recovered after about 3-4 minutes. Course Orders Ordered: Discontinued Medications Ketorolac Tromethamine (Ketorolac 30 Mg/Ml Vial) 15 mg IV NOW ONE Stop: 09/26/24 13:28 Last Admin: 09/26/24 13:44 Dose: 15 mg Documented By: DADA Propofol (Propofol 200 Mg/20 Ml Vial) 125 mg 1 mg/kg (125 mg) IV NOW ONE Stop: 09/26/24 14:24 Last Admin: 09/26/24 14:57 Dose: 75 mg Documented By: DADA Vital Signs Vital signs: Vital Signs - 8 hr 09/26/24 13:15 09/26/24 14:32 09/26/24 14:36 Temperature 96.9 F L Pulse Rate 71 57 L Respiratory Rate 24 19 Blood Pressure 171/77 H 163/75 H 163/75 H Pulse Oximetry 96 99 Oxygen Delivery Method Room Air Oxygen Flow Rate 09/26/24 14:36 09/26/24 14:40 09/26/24 14:43 Temperature Pulse Rate 58 L 67 68 Respiratory Rate 20 20 18 Blood Pressure 155/70 H Pulse Oximetry 100 98 95 Oxygen Delivery Method Oxygen Flow Rate 2 09/26/24 14:43 09/26/24 14:50 09/26/24 15:00 Temperature Pulse Rate 65 64 Respiratory Rate 18 12 Blood Pressure 155/70 H 143/64 H Pulse Oximetry 95 Oxygen Delivery Method Room Air Oxygen Flow Rate 09/26/24 15:00 09/26/24 15:00 09/26/24 15:05 Temperature Pulse Rate 61 62 Respiratory Rate 14 10 L Blood Pressure 143/64 H Pulse Oximetry 95 96 Oxygen Delivery Method Oxygen Flow Rate 09/26/24 15:05 09/26/24 15:10 09/26/24 15:10 Temperature Pulse Rate 61 Respiratory Rate 10 L Blood Pressure 151/67 H 146/67 H Pulse Oximetry 99 Oxygen Delivery Method Oxygen Flow Rate 09/26/24 15:15 09/26/24 15:15 09/26/24 15:20 Temperature Pulse Rate 58 L Respiratory Rate 12 Blood Pressure 153/68 H 160/73 H Pulse Oximetry 100 Oxygen Delivery Method Oxygen Flow Rate 09/26/24 15:20 09/26/24 15:25 09/26/24 15:25 Temperature Pulse Rate 58 L 53 L Respiratory Rate 10 L 8 L Blood Pressure 162/76 H Pulse Oximetry 100 99 Oxygen Delivery Method Oxygen Flow Rate 09/26/24 15:30 09/26/24 15:30 09/26/24 15:35 Temperature Pulse Rate 56 L 56 L Respiratory Rate 8 L 9 L Blood Pressure 174/79 H Pulse Oximetry 100 100 Oxygen Delivery Method Oxygen Flow Rate 09/26/24 15:35 09/26/24 15:40 09/26/24 15:40 Temperature Pulse Rate 58 L Respiratory Rate Blood Pressure 177/79 H 181/86 H Pulse Oximetry 100 Oxygen Delivery Method Room Air Oxygen Flow Rate MDM - Extremity Injury (Upper) MDM Narrative Medical decision making narrative: Shoulder x-ray shows anterior, inferior dislocation of the humerus no displaced fracture. Repeat shoulder x-ray shows interval reduction with normal alignment Hill-Sachs fracture of the humerus age indeterminate. CT shows Hill-Sachs fracture of the humerus bony Bankart fracture of the anterior glenoid. Discussed with the patient for she was sedation discussed risks versus benefits. Did discuss with the patient looks like she was C received some BVM and O2 with her prior procedural sedation so we will use less today. You have been using half the amount of propofol 75 mg which has a proximally 0.5 mg/kg for the patient for propofol still became hypoxic and required BVM and O2. She seems to be quite sensitive to propofol. She did not have any hypotension otherwise. Patient was placed in sling. Discussed with Orthopedic surgery, Dr. Pyle at 1621. Asked him to get CT or preferably MRI if that has availability today. Asked the patient continued to be in sling shoulder immobilizer for up to 6 weeks. We would like to have patient follow up in the next week. Reviewed with the patient CT obtained med recommendations from Orthopedic surgery. She was to call for an appointment tomorrow. Discharge Plan Departure Patient Disposition: Home Clinical Impression: Dislocation of shoulder Qualifiers: Laterality: left Instructions: DI for Shoulder Dislocation Activity Restrictions/Additional Instructions: Follow up with Orthopedic surgery for recheck. You may benefit from physicial therapy. Please call for an appointment tomorrow to follow up in the next week. Continue to wear your shoulder immobilizer/sling for the next 6 weeks. You can remove for showers but keep your shoulder movements to a minimum. Please return for recurrent symptoms or other new or concerning changes. Prescriptions: No Action meloxicam 15 mg tablet 15 mg PO DAILY albuterol sulfate 90 mcg/actuation HFA aerosol inhaler 2 puff inhalation Q6H PRN (Reason: shortness of breath or wheezing) Qty: 6.7 0RF amoxicillin-pot clavulanate 875-125 mg tablet 1 tab PO BID Qty: 20 0RF duloxetine 60 mg Capsule,Delayed Release(Dr/Ec) 90 mg PO DAILY Referrals: Marie Pyle MD [Physician] - Stand Alone Forms: Patient Portal/API/Survey
--- NOTE | 2024-09-26 14:39 | DI.RAD.S_ITS ---
PROCEDURE: XR SHOULDER LT MIN 2V INDICATIONS: shoulder relocation TECHNIQUE: 2 views of the shoulder were acquired. COMPARISON: [facility], CR, XR SHOULDER LT MIN 2V, 09/26/2024, 13:25. [facility], CR, XR SHOULDER LT MIN 2V, 09/22/2024, 0:42. FINDINGS/IMPRESSION: Interval reduction with normal alignment. Hill-Sachs fracture of the humerus. This is age indeterminate . Dictated by: Andrew Dozier M.D. on 09/26/2024 at 15:02 Approved by: Andrew Dozier M.D. on 09/26/2024 at 15:03
[2024-09-26] MEDS: propofoL 200 MG/20 ML VIAL 125 MG IV (14:57)
--- NOTE | 2024-09-26 15:14 | PC.NURSE ---
time out called at 1436, Dr Hernandez and RT Velazco at the bedside. Dr Hernandez gave 75ml of propofol and patients left arm was reduced. Patient became hypoxic, RT performed jaw thrust and applied 2L NC, sats continued to stay as low as 76%. RT Velazco attempted BVM but patient fought against it. Patient encourged to take some deep breaths and sats returned to 96% on room air and patient emerged a/ox4, vital signs returned to pre sedation, respirations even and unlabored
--- NOTE | 2024-09-26 16:16 | DI.CT.S_ITS ---
PROCEDURE: CT UE LT WO CON INDICATIONS: shoulder dislocation TECHNIQUE: Noncontrast 0.75 mm thick sections acquired from the acromioclavicular joint to the inferior scapula, with coronal and sagittal reformatting. COMPARISON: [facility], CR, XR SHOULDER LT MIN 2V, 09/22/2024, 0:42. [facility], CR, XR SHOULDER LT MIN 2V, 09/21/2024, 22:35. FINDINGS: Image quality: Excellent. Bones: There is a fracture of the anterior glenoid (series 2, image 70). Bony irregularity along the superior aspect of the greater tuberosity, with a small bone fragment measuring 5 mm between the humerus and glenoid (series 2, image 54). Soft tissues: Lipohemarthrosis. IMPRESSION: Hill-Sachs fracture of the humerus. Bony Bankart fracture of the anterior glenoid. Dictated by: Andrew Dozier M.D. on 09/26/2024 at 16:59 Approved by: Andrew Dozier M.D. on 09/26/2024 at 17:01
== END 2024-09-26 17:19 | disposition home or self-care (01) ==
PROVIDERS: Emergency Provider Emergency Medicine; Family Provider Specialist
DX: S43.005A Unspecified dislocation of left shoulder joint, initial encounter (principal)
CPT/HCPCS: 23650; 36415; 73030; 73200; 96374; 99152; 99284; J1885; J2704